=== PATIENT | female | born 1945 | race Caucasian/White ===

== ENCOUNTER → 2017-03-02 | Outpatient (CLI) | payer MEDICARE | END | disposition home or self-care (01) | LOC: CFH 09:41 | PROVIDERS: ATTEND Obstetrics & Gynecology | DX: Z12.31 Encounter for screening mammogram for malignant neoplasm of breast (principal) | CPT/HCPCS: G0202 ==

== ENCOUNTER → 2018-07-26 | Outpatient (CLI) | payer MEDICARE | END | disposition home or self-care (01) | LOC: CFH 08:51 | PROVIDERS: ATTEND Internal Medicine | DX: R07.9 Chest pain, unspecified (principal) | CPT/HCPCS: 71045 ==

== ENCOUNTER 2019-05-28 13:24 | Outpatient (CLI) | payer MEDICARE | END 2019-05-28 23:59 | disposition home or self-care (01) | LOC: CFH 13:24 | PROVIDERS: ATTEND Obstetrics & Gynecology | DX: Z12.31 Encounter for screening mammogram for malignant neoplasm of breast (principal) | CPT/HCPCS: 77063; 77067 ==

== ENCOUNTER → 2019-06-12 | Outpatient (CLI) | payer MEDICARE | END | disposition home or self-care (01) | LOC: CFH 10:10 | PROVIDERS: ATTEND Internal Medicine | DX: R92.8 Other abnormal and inconclusive findings on diagnostic imaging of breast (principal) | CPT/HCPCS: 76641 ==

== ENCOUNTER → 2020-12-16 | Outpatient (CLI) | payer MEDICARE | END | disposition home or self-care (01) | LOC: CFH 08:57 | PROVIDERS: ATTEND Obstetrics & Gynecology | DX: Z12.31 Encounter for screening mammogram for malignant neoplasm of breast (principal) | CPT/HCPCS: 77063; 77067 ==

== ENCOUNTER → 2021-01-06 | Outpatient (CLI) | payer MEDICARE | END | disposition home or self-care (01) | LOC: CFH 12:22 | PROVIDERS: ATTEND Obstetrics & Gynecology | DX: R92.8 Other abnormal and inconclusive findings on diagnostic imaging of breast (principal) | CPT/HCPCS: 76641 ==

== ENCOUNTER → 2021-01-19 | Outpatient (CLI) | payer MEDICARE | END | disposition home or self-care (01) | LOC: CFH 12:40 | PROVIDERS: ATTEND Obstetrics & Gynecology | DX: R92.2 Inconclusive mammogram (principal); N63.13 Unspecified lump in the right breast, lower outer quadrant; N64.89 Other specified disorders of breast | CPT/HCPCS: 76642 ==

== ENCOUNTER 2021-02-18 14:19 | Outpatient (CLI) | payer MEDICARE ==
[~2021-02-18 14:19] MED LIST: GADOTERATE 10 MMOL/20 ML VIAL ONE
[2021-02-27] MEDS ORDERED: EYE VITAMIN PO (09:53)
[2021-02-27] MEDS ORDERED: OMEG1CAP6 PO (09:53)
[2021-02-27] MEDS ORDERED: CALC1CAP8 PO (09:53)
[2021-02-27] MEDS ORDERED: MAGN400T36 PO (09:53)
[2021-02-27] MEDS ORDERED: BIOT25005 PO (09:53)
[2021-02-27] MEDS ORDERED: [UNRECOGNIZED DRUG - CODE] PO (09:53)
[2021-02-27] MEDS ORDERED: ASCO-96 PO (09:53)
[2021-02-27] MEDS ORDERED: CHOL10003 PO (09:53)
== END 2021-02-18 23:59 | disposition home or self-care (01) ==
LOC: CFH 14:19
PROVIDERS: ATTEND Obstetrics & Gynecology
DX: C50.811 Malignant neoplasm of overlapping sites of right female breast (principal)
CPT/HCPCS: 77049; A9575; C8908

== ENCOUNTER → 2021-02-26 | Outpatient (CLI) | payer MEDICARE ==
[~2021-02-26] MED LIST changes: +ASCO-96 PO; +BIOT25005 PO; +CALC1CAP8 PO; +CHOL10003 PO; +EYE VITAMIN PO; -GADOTERATE 10 MMOL/20 ML VIAL ONE; +MAGN400T36 PO; +OMEG1CAP6 PO; +[UNRECOGNIZED DRUG - CODE] PO
== END | disposition home or self-care (01) ==
LOC: CFH 12:28
PROVIDERS: ATTEND Surgery
DX: C50.811 Malignant neoplasm of overlapping sites of right female breast (principal); R92.8 Other abnormal and inconclusive findings on diagnostic imaging of breast
CPT/HCPCS: 76642

== ENCOUNTER → 2021-02-27 | Outpatient (CLI) | payer MEDICARE ==
[2021-02-27 10:18] LABS: BASOPHILS % (AUTO) 1 % (0-1); EOSINOPHILS % (AUTO) 2 % (1-7); LYMPHOCYTES % (AUTO) 21 % (22-44); MEAN CORPUSCULAR HEMOGLOBIN 33.2 pg (27.0-34.8); MEAN CORPUSCULAR HGB CONC 33.9 g/dL (32.4-35.8); MEAN PLATELET VOLUME 8.1 fL (7.4-10.4); MONOCYTES % (AUTO) 8 % (2-9); NEUTROPHILS % (AUTO) 68 % (42-75); PLATELET COUNT 257 x10^3/uL (130-400); RED BLOOD COUNT 4.54 x10^6/uL (3.82-5.3); RED CELL DISTRIBUTION WIDTH 13.4 % (9.6-15.2)
== END | disposition home or self-care (01) ==
LOC: STAR 09:07
PROVIDERS: ATTEND Surgery
DX: Z01.812 Encounter for preprocedural laboratory examination (principal); C50.811 Malignant neoplasm of overlapping sites of right female breast; C50.311 Malignant neoplasm of lower-inner quadrant of right female breast; I49.3 Ventricular premature depolarization; I25.2 Old myocardial infarction
CPT/HCPCS: 36415; 85025; 93005

== ENCOUNTER 2021-03-05 07:19 | Day surgery (SDC) | payer MEDICARE ==
[~2021-03-05] VITALS: Ht 172.7 cm; Wt 54.5 kg
[2021-03-05] MEDS ORDERED: ISOSULFAN BLUE 10 MG/ML, 5ML IV ONE (07:48)
[2021-03-05] MEDS ORDERED: CEFAZOLIN 1,000 MG ONE ×3 (07:48→17:59)
[2021-03-05] MEDS ORDERED: GENTAMICIN 80 MG/2 ML ONE (07:48)
[2021-03-05] MEDS ORDERED: BUPIVACAINE/PF 0.5% ONE (07:48)
[2021-03-05] MEDS ORDERED: EPINEPHRINE 1 MG/ML, 1ML ONE (07:49)
[2021-03-05] MEDS ORDERED: CHLORHEXIDINE 15 ML UDC PO ONE (08:30)
[2021-03-05] MEDS ORDERED: LACTATED RINGERS 1,000 ML IV SCH (08:30)
[2021-03-05] MEDS ORDERED: FENTANYL PF 250 MCG/5ML ONE (09:25)
[2021-03-05] MEDS ORDERED: SODIUM CHLORIDE 0.9% PF 10ML ONE (09:27)
[2021-03-05] MEDS ORDERED: LIDOCAINE-MPF 2% ,5ML ONE (09:27)
[2021-03-05] MEDS ORDERED: ONDANSETRON 2MG/ML, 2ML ONE ×2 (09:28→17:59)
[2021-03-05] MEDS ORDERED: DEXAMETHASONE 4 MG/ML, 1ML ONE ×3 (09:28→17:59)
[2021-03-05] MEDS ORDERED: SUCCINYLCHOLINE 20 MG/ML, 10ML ONE ×2 (09:28→17:59)
[2021-03-05] MEDS ORDERED: PROPOFOL 10 MG/ML, 20ML ONE ×2 (09:28→17:59)
[2021-03-05] MEDS ORDERED: EPHEDRINE 50 MG/ML, 1ML IVPush PRN (10:00)
[2021-03-05] MEDS ORDERED: ACETAMINOPHEN 325 MG TABLET PO PRN ×2 (10:00→20:00)
[2021-03-05] MEDS ORDERED: PROMETHAZINE 25 MG/ML, 1ML IVPush PRN (10:00)
[2021-03-05] MEDS ORDERED: hydrALAzine 20 MG/ML, 1ML IV PRN (10:00)
[2021-03-05] MEDS ORDERED: LABETALOL 5MG/ML, 20ML IV PRN (10:00)
[2021-03-05] MEDS ORDERED: FENTANYL PF 100 MCG/2ML IV PRN (10:00)
[2021-03-05] MEDS ORDERED: OXYcodone 5 MG/5 ML ORAL.SOL UDC PO PRN ×2 (10:00→20:00)
[2021-03-05] MEDS ORDERED: ONDANSETRON 2MG/ML, 2ML IVPush PRN (10:00)
[2021-03-05] MEDS ORDERED: KETOROLAC 30 MG/1 ML ONE (10:01)
[2021-03-05] MEDS ORDERED: EPHEDRINE 50 MG/ML, 1ML ONE ×2 (10:08→17:59)
[2021-03-05] MEDS: GENTAMICIN 80 MG/2 ML IM ONE ×2 (10:19→18:36)
[2021-03-05] MEDS ORDERED: CEFAZOLIN 1,000 MG IM ONE (10:19)
[2021-03-05] MEDS ORDERED: BUPIVACAINE/PF-EPI 0.5% 1:200K INFIL ONE (10:19)
[2021-03-05] MEDS ORDERED: HYDROmorphone 1 MG/ML, 1ML INJ ONE (11:06)
[2021-03-05] MEDS ORDERED: ACETAMINOPHEN 650 MG/20.3 ML UDC ONE (12:54)
[2021-03-05] MEDS ORDERED: OXYcodone 5 MG/5 ML ORAL.SOL UDC ONE ×2 (12:54→19:55)
[2021-03-05] MEDS: HYDROmorphone 1 MG/ML, 1ML INJ IVPush PRN ×2 (14:09→16:00)
[2021-03-05] MEDS ORDERED: FENTANYL PF 100 MCG/2ML ONE (17:59)
[2021-03-05] MEDS ORDERED: NEOSTIGMINE 1 MG/ML, 10ML ONE (17:59)
[2021-03-05] MEDS ORDERED: ROCURONIUM 10 MG/ML,10ML ONE (17:59)
[2021-03-05] MEDS ORDERED: ACETAMINOPHEN 325 MG TABLET ONE (19:46)
== END 2021-03-05 20:55 | disposition home or self-care (01) ==
LOC: OUT 07:19 → EDSTATUS 10:30 → OUT 20:55
PROVIDERS: ATTEND Surgery
DX: C50.811 Malignant neoplasm of overlapping sites of right female breast (principal); D48.62 Neoplasm of uncertain behavior of left breast; N64.89 Other specified disorders of breast; N60.82 Other benign mammary dysplasias of left breast; N60.81 Other benign mammary dysplasias of right breast; Z79.899 Other long term (current) drug therapy
CPT/HCPCS: 10140; 15777; 15860; 19303; 19357; 38525; 38792; 88307; 88333; A9541; C1729; C1762; C1789; J0171; J0330; J0690; J1100; J1170; J1580; J1885; J2405; J2704; J2710; J3010